=== PATIENT | female | born 1925 | race Hispanic/Latino ===

== ENCOUNTER 2016-10-24 12:07 | Inpatient (IN) | payer MEDICARE, OTHER ==
[2016-10-24 12:13] VITALS: BMI 26.9
--- NOTE | 2016-10-24 12:29 | ED PDOC ---
Syncope/Near Syncope/Dizziness Time Seen by Provider: 10/24/16 12:19 History Per: Other Onset/Duration Of Symptoms: Days (1) Current Symptoms Are (Timing): Better Associated Symptoms Preceding Syncopal Episode: No Predromal Symptoms (Sudden Onset) Seizure Or Post-ictal Symptoms: None Possible Causative Factor(s): Decreased PO Intake Fall Associated With With Symptoms: Yes Severity: Mild Pain Scale Rating Of: 0 Additional Complaint(s): Found by aide on floor this AM. Pt did not respond to doorbell. Fell last night , inkown time andf unknown circimstances. Pt denies dizziness, chest pain, palpitaions, headache or LOC. Denies injury. No neck,back or ext pain. Past Medical History Vital Signs: Last Vital Signs Temp 99.9 F H 10/24/16 12:14 Pulse 100 H 10/24/16 12:14 Resp 19 10/24/16 12:14 BP 130/62 10/24/16 12:14 Pulse Ox 94 L 10/24/16 12:14 - Medical History PMH: Dementia, Diabetes, HTN Denies: HIV, Chronic Kidney Disease - Surgical History Surgical History: Cholecystectomy - Family History Family History: States: Unknown Family Hx - Home Medications Home Medications: Ambulatory Orders Medication Instructions Recorded Aspirin [Ecotrin] 81 mg PO DAILY 10/24/16 Diclofenac Sodium [Voltaren] 1 appl TOP BID PRN 10/24/16 Famotidine [Pepcid] 20 mg PO BID 10/24/16 Glimepiride [amaRYL] 2 mg PO DAILY 10/24/16 Losartan/Hydrochlorothiazide 1 tab PO DAILY 10/24/16 [Hyzaar 100-12.5 Tablet] Memantine [Namenda] 10 mg PO BID 10/24/16 Metoprolol Succinate [Toprol XL] 25 mg PO DAILY 10/24/16 SITagliptin [Januvia] 50 mg PO DAILY 10/24/16 amLODIPine [Norvasc] 10 mg PO HS 10/24/16 - Allergies Allergies/Adverse Reactions: Allergies Allergy/AdvReac Type Severity Reaction Status Date / Time No Known Allergies Allergy Verified 10/24/16 12:19 Review of Systems ROS Statement: Except As Marked, All Systems Reviewed And Found Negative Physical Exam - Reviewed Nursing Documentation Reviewed: Yes Vital Signs Reviewed: Yes - Physical Exam Appears: Positive for: Non-toxic, No Acute Distress Head Exam: Positive for: ATRAUMATIC, NORMAL INSPECTION, NORMOCEPHALIC Skin: Positive for: Normal Color, Warm, DRY Eye Exam: Positive for: EOMI, Normal appearance, PERRL ENT: Positive for: Normal ENT Inspection Neck: Positive for: Normal, Painless ROM Cardiovascular/Chest: Positive for: Regular Rate, Rhythm Respiratory: Positive for: CNT, Normal Breath Sounds Gastrointestinal/Abdominal: Positive for: Normal Exam, Bowel Sounds, Soft Back: Positive for: Normal Inspection Extremity: Positive for: Normal ROM Neurologic/Psych: Positive for: Alert, Oriented - Laboratory Results Result Diagrams: 10/24/16 12:40 10/24/16 12:40 - ECG O2 Sat by Pulse Oximetry: 94 Disposition - Clinical Impression Clinical Impression: Syncope, SIRS (systemic inflammatory response syndrome) - Patient ED Disposition Is Patient to be Admitted: Yes - Disposition Disposition Time: 16:27 Condition: FAIR - Pt Status Changed To: Hospital Disposition Of: Observation - POA Present On Arrival: None
[2016-10-24 13:12] LABS: BASO # 0.1 K/uL (0.0-0.2); BASO % 0.8 % (0.0-2.0); EOS # 0.6 K/uL (0.0-0.7); EOS % 4.7 % (0.0-4.0); HEMOGLOBIN 12.4 g/dL (12.0-16.0); LYMPH # 1.4 K/uL (1.0-4.3); LYMPH % 10.8 % (20.0-40.0); MEAN CELL VOLUME 84.2 fl (81.0-99.0); MEAN CORPUSCULAR HEMOGLOBIN 26.9 pg (27.0-31.0); MEAN PLATELET VOLUME 9.8 fl (7.2-11.7); MONO # 1.1 K/uL (0.0-0.8); MONO % 8.6 % (0.0-10.0); NEUT # 9.6 K/uL (1.8-7.0); NEUT % 75.1 % (50.0-75.0); RBC 4.62 Mil/uL (3.80-5.20); RED CELL DISTRIBUTION WIDTH 14.1 % (11.5-14.5); WHITE BLOOD COUNT 12.8 K/uL (4.8-10.8)
[2016-10-24 13:21] LABS: ALB/GLOB RATIO 1.3 (1.0-2.1); ALBUMIN 4.6 g/dL (3.5-5.0); CALCIUM 9.8 mg/dL (8.4-10.2)
--- NOTE | 2016-10-24 16:04 | RAD ---
PROCEDURE: Radiographs of the pelvis. Bowel HISTORY: trauma COMPARISON: None. FINDINGS: BONES: Pelvic Bones: Unremarkable. Hips: Moderate degenerative changes are bilaterally symmetrical. JOINTS: Sacroiliac Joints: Unremarkable. Pubic Symphysis: Unremarkable. OTHER FINDINGS: None. IMPRESSION: No acute findings related to/accounting for the clinical presentation.
--- NOTE | 2016-10-24 16:05 | RAD ---
PROCEDURE: CHEST RADIOGRAPH, 1 VIEW HISTORY: syncope COMPARISON: All 09/14/2015 None available. FINDINGS: LUNGS: Clear. PLEURA: No pneumothorax or pleural fluid seen. CARDIOVASCULAR: No radiographic findings to suggest acute or significant cardiovascular disease. OSSEOUS STRUCTURES: No significant abnormalities. VISUALIZED UPPER ABDOMEN: Normal. OTHER FINDINGS: None. IMPRESSION: No active disease. No acute/significant interval changes.
--- NOTE | 2016-10-24 16:23 | CT ---
PROCEDURE: CT HEAD WITHOUT CONTRAST. HISTORY: r/o bleed COMPARISON: None available. TECHNIQUE: Axial computed tomography images were obtained through the head/brain without intravenous contrast. Radiation dose: Total exam DLP = 853.45 mGy-cm. This CT exam was performed using one or more of the following dose reduction techniques: Automated exposure control, adjustment of the mA and/or kV according to patient size, and/or use of iterative reconstruction technique. FINDINGS: HEMORRHAGE: No intracranial hemorrhage. BRAIN: There is cystic encephalomalacia in the right lateral frontal and anterior parietal lobes. There is no mass, mass effect or abnormal extra-axial fluid collection. There are mild chronic microangiopathic changes. There are coarse atherosclerotic calcifications in the cavernous carotid arteries. VENTRICLES: There is mild ex vacuo dilatation of the right lateral ventricle. There is mild age-related global parenchymal volume loss and proportionate enlargement of the ventricles and cortical sulci. CALVARIUM: There is hyperostosis frontalis interna. PARANASAL SINUSES: Predominantly clear. MASTOID AIR CELLS: Predominantly clear. OTHER FINDINGS: None. IMPRESSION: 1. No acute intracranial abnormality. 2. 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 3. Mild chronic microangiopathic changes and mild age-related global parenchymal volume loss.
[2016-10-24 16:40] LABS: VENOUS BLOOD GAS BASE EXCESS -1.9 mmol/L (0.0-2.0); VENOUS BLOOD GAS PCO2 35 mmHg (40-60); VENOUS BLOOD GAS PO2 34 mm/Hg (30-55); VENOUS BLOOD PH 7.41 (7.32-7.43)
[2016-10-24] MEDS ORDERED: Sodium Chloride 0.9% 1,000 ML IV STA (16:52)
[2016-10-24 17:07] LABS: SQUAMOUS EPITHIAL < 1 /hpf (0-5); URINE BILIRUBIN NEGATIVE (NEGATIVE); URINE BLOOD NEGATIVE (NEGATIVE); URINE CLARITY CLEAR (Clear); URINE COLOR YELLOW (YELLOW); URINE GLUCOSE (UA) NEG (Normal); URINE LEUKOCYTE ESTERASE SMALL Leu/uL (Negative); URINE NITRATE NEGATIVE (NEGATIVE); URINE PROTEIN NEGATIVE (NEGATIVE); URINE UROBILINOGEN 0.2-1.0 mg/dL (0.2-1.0)
[2016-10-24] MEDS ORDERED: Piperacillin/Tazobact 3.375 GM in Sodium Chloride 0.9% 100 ML IVPB STA (17:30)
[2016-10-24 18:51] LABS: VENOUS BLOOD GAS BASE EXCESS -1.7 mmol/L (0.0-2.0); VENOUS BLOOD GAS PCO2 38 mmHg (40-60); VENOUS BLOOD GAS PO2 31 mm/Hg (30-55); VENOUS BLOOD PH 7.39 (7.32-7.43)
[2016-10-24] MEDS: Dextrose 5%/0.45% NS 1,000 ML IV SCH (20:56)
[2016-10-24] MEDS ORDERED: Patient's Own Med (Diclofenac Sodium [Voltaren] 1 APPL) TOP PRN (22:58)
[2016-10-25] MEDS: GlipiZIDE 5 mg SR Tab PO SCH (08:59)
[2016-10-25] MEDS: Dextrose 5%/0.45% NS 1,000 ML IV SCH (08:59)
[2016-10-25] MEDS: Metoprolol Succinate 25 mg XL Tab PO SCH (08:59)
[2016-10-25] MEDS ORDERED: Pneumococcal 23-Valent Vaccine IM ONE (09:00)
[2016-10-25] MEDS ORDERED: Patient's Own Med (Losartan/Hydrochlorothiazide [Hyzaar 100-12.5 Tablet] 1 TAB) PO SCH (09:00)
[2016-10-25] MEDS: Enoxaparin 30 mg Syringe SC SCH (09:01)
--- NOTE | 2016-10-25 10:15 | CP.PCM.HP ---
Past Patient History - Infectious Disease Hx of Infectious Diseases: None - Past Medical History & Family History Past Medical History?: Yes - Past Social History Smoking Status: Never Smoked - CARDIAC Hx Hypercholesterolemia: Yes Hx Hypertension: Yes - PULMONARY Hx Respiratory Disorders: No - NEUROLOGICAL HX Cerebrovascular Accident: Yes Hx Dementia: Yes - HEENT Hx Cataracts: Yes - RENAL Hx Chronic Kidney Disease: No - ENDOCRINE/METABOLIC Hx Endocrine Disorders: Yes Hx Diabetes Mellitus Type 2: Yes - HEMATOLOGICAL/ONCOLOGICAL Hx Human Immunodeficiency Virus (HIV): No - INTEGUMENTARY Hx Dermatological Problems: No - MUSCULOSKELETAL/RHEUMATOLOGICAL Hx Falls: Yes - GASTROINTESTINAL Hx Gastrointestinal Disorders: No - GENITOURINARY/GYNECOLOGICAL Hx Genitourinary Disorders: No - PSYCHIATRIC Hx Substance Use: No - SURGICAL HISTORY Hx Cholecystectomy: Yes Hx Hysterectomy: Yes - ANESTHESIA Hx Anesthesia: Yes Hx Anesthesia Reactions: No Meds Allergies/Adverse Reactions: Allergies Allergy/AdvReac Type Severity Reaction Status Date / Time No Known Allergies Allergy Verified 10/24/16 12:19 Results - Vital Signs Recent Vital Signs: Last Vital Signs Temp 37.9 C H 10/25/16 08:00 Pulse 99 H 10/25/16 09:01 Resp 18 10/25/16 08:00 BP 134/72 10/25/16 09:01 Pulse Ox 90 L 10/25/16 08:00 - Labs Result Diagrams: 10/24/16 12:40 10/24/16 12:40 Labs: Laboratory Results - last 24 hr 10/24/16 10/24/16 10/24/16 16:30 16:54 18:45 pO2 34 31 VBG pH 7.41 7.39 VBG pCO2 35 L 38 L VBG HCO3 22.6 22.6 VBG Total CO2 23.3 24.2 VBG O2 Sat (Calc) 75.2 H 65.0 VBG Base Excess -1.9 L -1.7 L VBG Potassium 3.9 4.2 Sodium 141.0 141.0 Chloride 112.0 H 111.0 H Glucose 178 H 162 H Lactate 2.9 H 1.9 FiO2 21.0 21.0 POC Glucose (mg/dL) Venous Blood Potassium 3.9 4.2 Urine Color Yellow Urine Clarity Clear Urine pH 5.0 Ur Specific [place] 1.014 Urine Protein Negative Urine Glucose (UA) Neg Urine Ketones Negative Urine Blood Negative Urine Nitrate Negative Urine Bilirubin Negative Urine Urobilinogen 0.2-1.0 Ur Leukocyte Esterase Small Urine RBC (Auto) 2 Urine Microscopic WBC 12 H Ur Squamous Epith Cells < 1 10/24/16 10/24/16 10/25/16 18:51 21:22 05:38 pO2 VBG pH VBG pCO2 VBG HCO3 VBG Total CO2 VBG O2 Sat (Calc) VBG Base Excess VBG Potassium Sodium Chloride Glucose Lactate FiO2 POC Glucose (mg/dL) 171 H 178 H 214 H Venous Blood Potassium Urine Color Urine Clarity Urine pH Ur Specific [place] Urine Protein Urine Glucose (UA) Urine Ketones Urine Blood Urine Nitrate Urine Bilirubin Urine Urobilinogen Ur Leukocyte Esterase Urine RBC (Auto) Urine Microscopic WBC Ur Squamous Epith Cells
[2016-10-25] MEDS: Lidocaine 5% Patch TD SCH (12:29)
--- NOTE | 2016-10-25 16:37 | CP.PCM.CON ---
History of Present Illness - History of Present Illness History of Present Illness: NEURO CONSULT NOTE: 10/25/16 CHIEF COMPLAINT: FALL HPI: THIS IS A 89 YEAR OLD WOMAN WITH H/O DEMENTIA, TYPE ii DM, HLD, S/P FALL AND GENERALIZED WEAKNESS FOUND TO HAVE INCREASED BLOOD SUGAR AND INCREASED BUN AND CREATININE WITH SMALL UTI. CT HEAD SHOWED NO ACUTE INTRACRANIAL ABNORMALITY. 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 FOLLOWS COMMANDS. ROS: 14 POINT REVIEW OF SYMPTOMS IS NEGATIVE PER HPI. ALLERGIES: NONE SOCIAL HISTORY: NO ILLICIT DRUG USE, SMOKING, OR ETOH USE. FAMILY: NON CONTRIBUTORY. MEDICATIONS: REVIEWED BY NURSE'S RECONCILIATION SHEET. PAST MEDICAL HISTORY: DEMENTIA, TYPE ii DM, HLD PHYSICAL EXAM: VITAL SIGNS: REVIEWED BY THE CHART GENERAL EXAM: PATIENT SEEN IN BED, IN NO ACUTE DISTRESS HEENT: PERRLA, EOMI, NECK SUPPLE, NO JVD, NO ADENOPATHY CVS: S1, S2, RRR, NO MURMURS NOTED LUNGS: CLEAR TO AUSCULTATION, NO ADVENTITIOUS SOUNDS ABDOMEN: SOFT AND NONTENDER EXTREMITIES: NO CLUBBING OR CYANOSIS. PP 2+ B/L NEURO: PT IS ALERT AND ORIENTED TO PERSON, PLACE, AND YEAR. , RECALL TO 5 MINUTES 0/3, POOR ATTENTION SPAN SPEECH IS FLUENT WITHOUT ERRORS, CN II-XII INTACT, MOTOR EXAM: NORMAL TONE, NORMAL BULK OF MUSCLE, MOVES ALL EXTREMITIES EQUALLY, NO PRONATOR DRIFT SEEN. SENSORY EXAM: LIGHT TOUCH, PIN PRICK UP TO CALVES B/L, PROPRIOCEPTION , DECREASED VIBRATION AT TOES AND KNEES. DEEP TENDON REFLEXES: 2+ THROUGHOUT AND ABSENT AT KNEES AND ANKLES. COORDINATION: FINGER TO NOSE IS INTACT. HEEL TO [place]CK[place] IS INTACT GAIT: DEFERRED LABS: REVIEWED BY THE CHART. ASSESSMENT AND PLAN: THIS IS A 89 YEAR OLD WOMAN WITH H/O DEMENTIA, TYPE ii DM, HLD, S/P FALL AND GENERALIZED WEAKNESS FOUND TO HAVE INCREASED BLOOD SUGAR AND INCREASED BUN AND CREATININE WITH SMALL UTI. CT HEAD SHOWED NO ACUTE INTRACRANIAL ABNORMALITY. 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 FOLLOWS COMMANDS. IMPRESSION: FALL SECONDARY TO UNSTABLE GAIT FROM UNDERLYING DIABETIC PERIPHERAL NEUROPATHY SUPERIMPOSED UNDERLYING DECONSITIONED STATE AND DEHYDRATION., 1. ASA 81 MG FOR STROKE PREVENTION 2. PHYSICAL THERAPY AND WILL NEED SUBACUTE REHAB 3. DIABETIC DIET AND KEEP BLOOD SUGAR BETWEEN 140 AND 180. 4. CONTINUE WITH PRESENT MANAGEMENT THANK YOU. Edgar DOMINGUEZ MD Past Patient History - Infectious Disease Hx of Infectious Diseases: None - Past Medical History & Family History Past Medical History?: Yes - Past Social History Smoking Status: Never Smoked - CARDIAC Hx Hypercholesterolemia: Yes Hx Hypertension: Yes - PULMONARY Hx Respiratory Disorders: No - NEUROLOGICAL HX Cerebrovascular Accident: Yes Hx Dementia: Yes - HEENT Hx Cataracts: Yes - RENAL Hx Chronic Kidney Disease: No - ENDOCRINE/METABOLIC Hx Endocrine Disorders: Yes Hx Diabetes Mellitus Type 2: Yes - HEMATOLOGICAL/ONCOLOGICAL Hx Human Immunodeficiency Virus (HIV): No - INTEGUMENTARY Hx Dermatological Problems: No - MUSCULOSKELETAL/RHEUMATOLOGICAL Hx Falls: Yes - GASTROINTESTINAL Hx Gastrointestinal Disorders: No - GENITOURINARY/GYNECOLOGICAL Hx Genitourinary Disorders: No - PSYCHIATRIC Hx Substance Use: No - SURGICAL HISTORY Hx Cholecystectomy: Yes Hx Hysterectomy: Yes - ANESTHESIA Hx Anesthesia: Yes Hx Anesthesia Reactions: No Meds Allergies/Adverse Reactions: Allergies Allergy/AdvReac Type Severity Reaction Status Date / Time No Known Allergies Allergy Verified 10/24/16 12:19 - Medications Medications: Current Medications Acetaminophen (Tylenol 325mg Tab) 650 mg PO Q6 PRN PRN Reason: Pain, moderate (4-7) Last Admin: 10/25/16 08:57 Dose: 650 mg Amlodipine Besylate (Norvasc) 10 mg PO HS [facility] Last Admin: 10/24/16 23:21 Dose: 10 mg Aspirin (Ecotrin) 81 mg PO DAILY [facility] Last Admin: 10/25/16 09:01 Dose: 81 mg Enoxaparin Sodium (Lovenox) 30 mg SC DAILY [facility] PRN Reason: Protocol Last Admin: 10/25/16 09:01 Dose: 30 mg Famotidine (Pepcid) 20 mg PO BID [facility] Last Admin: 10/25/16 16:16 Dose: 20 mg Glipizide (Glucotrol Xl) 5 mg PO BRK [facility] Last Admin: 10/25/16 08:59 Dose: 5 mg Hydrochlorothiazide (Microzide) 12.5 mg PO DAILY [facility] Last Admin: 10/25/16 09:00 Dose: 12.5 mg Dextrose/Sodium Chloride (Dextrose 5%/0.45% Ns 1000 Ml) 1,000 mls @ 80 mls/hr IV .[id number] [facility] Stop: 10/25/16 19:32 Last Admin: 10/25/16 08:59 Dose: Not Given Lidocaine (Lidoderm) 1 ea TD DAILY [facility] Last Admin: 10/25/16 12:29 Dose: 1 ea Losartan Potassium (Cozaar) 100 mg PO DAILY [facility] Last Admin: 10/25/16 09:01 Dose: 100 mg Memantine (Namenda) 10 mg PO BID [facility] Last Admin: 10/25/16 16:16 Dose: 10 mg Metoprolol Succinate (Toprol Xl) 25 mg PO DAILY [facility] Last Admin: 10/25/16 08:59 Dose: 25 mg Sitagliptin Phosphate (Januvia) 50 mg PO DAILY [facility] Last Admin: 10/25/16 08:58 Dose: 50 mg Results - Vital Signs Recent Vital Signs: Last Vital Signs Temp 98.9 F 10/25/16 16:27 Pulse 94 H 10/25/16 16:27 Resp 18 10/25/16 16:27 BP 125/52 L 10/25/16 16:27 Pulse Ox 94 L 10/25/16 16:27 - Labs Result Diagrams: 10/24/16 12:40 10/24/16 12:40 Labs: Laboratory Results - last 24 hr 10/24/16 10/24/16 10/24/16 16:30 16:54 18:45 pO2 34 31 VBG pH 7.41 7.39 VBG pCO2 35 L 38 L VBG HCO3 22.6 22.6 VBG Total CO2 23.3 24.2 VBG O2 Sat (Calc) 75.2 H 65.0 VBG Base Excess -1.9 L -1.7 L VBG Potassium 3.9 4.2 Sodium 141.0 141.0 Chloride 112.0 H 111.0 H Glucose 178 H 162 H Lactate 2.9 H 1.9 FiO2 21.0 21.0 POC Glucose (mg/dL) Venous Blood Potassium 3.9 4.2 Urine Color Yellow Urine Clarity Clear Urine pH 5.0 Ur Specific [place] 1.014 Urine Protein Negative Urine Glucose (UA) Neg Urine Ketones Negative Urine Blood Negative Urine Nitrate Negative Urine Bilirubin Negative Urine Urobilinogen 0.2-1.0 Ur Leukocyte Esterase Small Urine RBC (Auto) 2 Urine Microscopic WBC 12 H Ur Squamous Epith Cells < 1 10/24/16 10/24/16 10/25/16 18:51 21:22 05:38 pO2 VBG pH VBG pCO2 VBG HCO3 VBG Total CO2 VBG O2 Sat (Calc) VBG Base Excess VBG Potassium Sodium Chloride Glucose Lactate FiO2 POC Glucose (mg/dL) 171 H 178 H 214 H Venous Blood Potassium Urine Color Urine Clarity Urine pH Ur Specific [place] Urine Protein Urine Glucose (UA) Urine Ketones Urine Blood Urine Nitrate Urine Bilirubin Urine Urobilinogen Ur Leukocyte Esterase Urine RBC (Auto) Urine Microscopic WBC Ur Squamous Epith Cells 10/25/16 10/25/16 11:08 16:09 pO2 VBG pH VBG pCO2 VBG HCO3 VBG Total CO2 VBG O2 Sat (Calc) VBG Base Excess VBG Potassium Sodium Chloride Glucose Lactate FiO2 POC Glucose (mg/dL) 147 H 78 Venous Blood Potassium Urine Color Urine Clarity Urine pH Ur Specific [place] Urine Protein Urine Glucose (UA) Urine Ketones Urine Blood Urine Nitrate Urine Bilirubin Urine Urobilinogen Ur Leukocyte Esterase Urine RBC (Auto) Urine Microscopic WBC Ur Squamous Epith Cells
--- NOTE | 2016-10-25 17:22 | CARD ---
APPROVED REPORT EKG Measurement Heart [id number] <Conclusion> Sinus rhythm with 1st degree AV block Otherwise normal ECG
--- NOTE | 2016-10-25 18:07 | CP.PCM.CON ---
History of Present Illness - History of Present Illness History of Present Illness: patient seen/examined. no cardiac arrhythmia thus far on monitor will follow up EKG/echo Past Patient History - Infectious Disease Hx of Infectious Diseases: None - Past Medical History & Family History Past Medical History?: Yes - Past Social History Smoking Status: Never Smoked - CARDIAC Hx Hypercholesterolemia: Yes Hx Hypertension: Yes - PULMONARY Hx Respiratory Disorders: No - NEUROLOGICAL HX Cerebrovascular Accident: Yes Hx Dementia: Yes - HEENT Hx Cataracts: Yes - RENAL Hx Chronic Kidney Disease: No - ENDOCRINE/METABOLIC Hx Endocrine Disorders: Yes Hx Diabetes Mellitus Type 2: Yes - HEMATOLOGICAL/ONCOLOGICAL Hx Human Immunodeficiency Virus (HIV): No - INTEGUMENTARY Hx Dermatological Problems: No - MUSCULOSKELETAL/RHEUMATOLOGICAL Hx Falls: Yes - GASTROINTESTINAL Hx Gastrointestinal Disorders: No - GENITOURINARY/GYNECOLOGICAL Hx Genitourinary Disorders: No - PSYCHIATRIC Hx Substance Use: No - SURGICAL HISTORY Hx Cholecystectomy: Yes Hx Hysterectomy: Yes - ANESTHESIA Hx Anesthesia: Yes Hx Anesthesia Reactions: No Meds Allergies/Adverse Reactions: Allergies Allergy/AdvReac Type Severity Reaction Status Date / Time No Known Allergies Allergy Verified 10/24/16 12:19 - Medications Medications: Current Medications Acetaminophen (Tylenol 325mg Tab) 650 mg PO Q6 PRN PRN Reason: Pain, moderate (4-7) Last Admin: 10/25/16 08:57 Dose: 650 mg Amlodipine Besylate (Norvasc) 10 mg PO HS [facility] Last Admin: 10/24/16 23:21 Dose: 10 mg Aspirin (Ecotrin) 81 mg PO DAILY [facility] Last Admin: 10/25/16 09:01 Dose: 81 mg Enoxaparin Sodium (Lovenox) 30 mg SC DAILY [facility] PRN Reason: Protocol Last Admin: 10/25/16 09:01 Dose: 30 mg Famotidine (Pepcid) 20 mg PO BID [facility] Last Admin: 10/25/16 16:16 Dose: 20 mg Glipizide (Glucotrol Xl) 5 mg PO BRK [facility] Last Admin: 10/25/16 08:59 Dose: 5 mg Hydrochlorothiazide (Microzide) 12.5 mg PO DAILY [facility] Last Admin: 10/25/16 09:00 Dose: 12.5 mg Dextrose/Sodium Chloride (Dextrose 5%/0.45% Ns 1000 Ml) 1,000 mls @ 80 mls/hr IV .[id number] [facility] Stop: 10/25/16 19:32 Last Admin: 10/25/16 08:59 Dose: Not Given Lidocaine (Lidoderm) 1 ea TD DAILY [facility] Last Admin: 10/25/16 12:29 Dose: 1 ea Losartan Potassium (Cozaar) 100 mg PO DAILY [facility] Last Admin: 10/25/16 09:01 Dose: 100 mg Memantine (Namenda) 10 mg PO BID [facility] Last Admin: 10/25/16 16:16 Dose: 10 mg Metoprolol Succinate (Toprol Xl) 25 mg PO DAILY [facility] Last Admin: 10/25/16 08:59 Dose: 25 mg Sitagliptin Phosphate (Januvia) 50 mg PO DAILY [facility] Last Admin: 10/25/16 08:58 Dose: 50 mg Results - Vital Signs Recent Vital Signs: Last Vital Signs Temp 98.9 F 10/25/16 16:27 Pulse 94 H 10/25/16 16:27 Resp 18 10/25/16 16:27 BP 125/52 L 10/25/16 16:27 Pulse Ox 94 L 10/25/16 16:27 - Labs Result Diagrams: 10/24/16 12:40 10/24/16 12:40 Labs: Laboratory Results - last 24 hr 10/24/16 10/24/16 10/24/16 18:45 18:51 21:22 pO2 31 VBG pH 7.39 VBG pCO2 38 L VBG HCO3 22.6 VBG Total CO2 24.2 VBG O2 Sat (Calc) 65.0 VBG Base Excess -1.7 L VBG Potassium 4.2 Sodium 141.0 Chloride 111.0 H Glucose 162 H Lactate 1.9 FiO2 21.0 POC Glucose (mg/dL) 171 H 178 H Venous Blood Potassium 4.2 10/25/16 10/25/16 10/25/16 05:38 11:08 16:09 pO2 VBG pH VBG pCO2 VBG HCO3 VBG Total CO2 VBG O2 Sat (Calc) VBG Base Excess VBG Potassium Sodium Chloride Glucose Lactate FiO2 POC Glucose (mg/dL) 214 H 147 H 78 Venous Blood Potassium
--- NOTE | 2016-10-25 18:07 | CP.PCM.PN ---
Objective - Vital Signs/Intake and Output Vital Signs (last 24 hours): Temp Pulse Resp BP Pulse Ox 98.9 F 94 H 18 125/52 L 94 L 10/25/16 16:27 10/25/16 16:27 10/25/16 16:27 10/25/16 16:27 10/25/16 16:27 - Medications Medications: Current Medications Acetaminophen (Tylenol 325mg Tab) 650 mg PO Q6 PRN PRN Reason: Pain, moderate (4-7) Last Admin: 10/25/16 08:57 Dose: 650 mg Amlodipine Besylate (Norvasc) 10 mg PO HS [facility] Last Admin: 10/24/16 23:21 Dose: 10 mg Aspirin (Ecotrin) 81 mg PO DAILY [facility] Last Admin: 10/25/16 09:01 Dose: 81 mg Enoxaparin Sodium (Lovenox) 30 mg SC DAILY [facility] PRN Reason: Protocol Last Admin: 10/25/16 09:01 Dose: 30 mg Famotidine (Pepcid) 20 mg PO BID [facility] Last Admin: 10/25/16 16:16 Dose: 20 mg Glipizide (Glucotrol Xl) 5 mg PO BRK [facility] Last Admin: 10/25/16 08:59 Dose: 5 mg Hydrochlorothiazide (Microzide) 12.5 mg PO DAILY [facility] Last Admin: 10/25/16 09:00 Dose: 12.5 mg Dextrose/Sodium Chloride (Dextrose 5%/0.45% Ns 1000 Ml) 1,000 mls @ 80 mls/hr IV .[id number] [facility] Stop: 10/25/16 19:32 Last Admin: 10/25/16 08:59 Dose: Not Given Lidocaine (Lidoderm) 1 ea TD DAILY [facility] Last Admin: 10/25/16 12:29 Dose: 1 ea Losartan Potassium (Cozaar) 100 mg PO DAILY [facility] Last Admin: 10/25/16 09:01 Dose: 100 mg Memantine (Namenda) 10 mg PO BID [facility] Last Admin: 10/25/16 16:16 Dose: 10 mg Metoprolol Succinate (Toprol Xl) 25 mg PO DAILY [facility] Last Admin: 10/25/16 08:59 Dose: 25 mg Sitagliptin Phosphate (Januvia) 50 mg PO DAILY [facility] Last Admin: 10/25/16 08:58 Dose: 50 mg
--- NOTE | 2016-10-26 09:14 | CP.PCM.CON ---
History of Present Illness - History of Present Illness History of Present Illness: I was asked to see patient by Dr Pyle. The patient is a 89 year old female with a hsitory of HTRN, diabetes and hypercholesterolemia who presents with eakness. The patient states symptoms began one day prior to her admission. The patietn denies chest pain or palpitaitons. She felt faint as if she were going to pass out. Review of Systems - Constitutional Constitutional: Fatigue, Weakness - EENT Eyes: absent: As Per HPI, Blind Spots, Blurred Vision, Change in Vision, Decreased Night Vision, Diplopia, Discharge, Dry Eye, Exophthalmos, Floaters, Irritation, Itchy Eyes, Loss of Peripheral Vision, Pain, Photophobia, Requires Corrective Lenses, Sees Flashes, Spots in Vision, Tunnel Vision, Other Visual Disturbances, Loss of Vision, Other Ears: absent: As Per HPI, Decreased Hearing, Ear Discharge, Ear Pain, Tinnitus, Abnormal Hearing, Disequilibrium, Dizziness, Other Nose/Mouth/Throat: absent: As Per HPI, Epistaxis, Nasal Congestion, Nasal Discharge, Nasal Obstruction, Nasal Trauma, Nose Pain, Post Nasal Drip, Sinus Pain, Sinus Pressure, Bleeding Gums, Change in Voice, Dental Pain, Dry Mouth, Dysphagia, Halitosis, Hoarsness, Lip Swelling, Mouth Lesions, Mouth Pain, Odynophagia, Sore Throat, Throat Swelling, Tongue Swelling, Facial Pain, Neck Pain, Neck Mass, Other - Cardiovascular Cardiovascular: absent: As Per HPI, Acrocyanosis, Chest Pain, Chest Pain at Rest , Chest Pain with Activity, Claudication, Diaphoresis, Dyspnea, Dyspnea on Exertion, Edema, Irregular Heart Rhythm, Pain Radiating to Arm/Neck/Jaw, Leg Edema, Leg Ulcers, Lightheadedness, Orthopnea, Palpitations, Paroxysmal Nocturnal Dyspnea, Pedal Edema, Radiating Pain, Rapid Heart Rate, Slow Heart Rate, Syncope, Other - Respiratory Respiratory: absent: As Per HPI, Cough, Dyspnea, Hemoptysis, Dyspnea on Exertion , Wheezing, Snoring, Stridor, Pain on Inspiration, Chest Congestion, Excessive Mucous Production, Change in Mucous Color, Pain with Coughing, Other - Gastrointestinal Gastrointestinal: absent: As Per HPI, Abdominal Pain, Belching, Bloating, Change in Bowel Habits, Change in Stool Character, Coffee Ground Emesis, Constipation, Cramping, Diarrhea, Dyspepsia, Dysphagia, Early Satiety, Excessive Flatus, Fecal Incontinence, Heartburn, Hematemesis, Hematochezia, Loose Stools, Melena, Nausea, Odynophagia, Temesmus, Vomiting, Other - Genitourinary Genitourinary: absent: As Per HPI, Change in Urinary Stream, Difficulty Urinating, Dysuria, Flank Pain, Hematuria, Pyuria, Nocturia, Urinary Incontinence, Urinary Frequency, Urinary Hesitance, Urinary Urgency, Voiding Freq/Small Amts, Freq UTI, Hx Renal/Bladder Calculi, Hx /Renal Surgery, Bladder Distension, Other - Musculoskeletal Musculoskeletal: absent: As Per HPI, Abnormal Gait, Arthralgias, Atrophy, Back Pain, Deformity, Joint Swelling, Limited Range of Motion, Loss of Height, Muscle Cramps, Muscle Weakness, Myalgias, Neck Pain, Numbness, Radiating Pain into Limb, Stiffness, Tingling, Other - Neurological Neurological: absent: As Per HPI, Abnormal Gait, Abnormal Hearing, Abnormal Movements, Abnormal Speech, Behavioral Changes, Burning Sensations, Confusion, Convulsions, Disequilibrium, Dizziness, Numbness, Focal Weakness, Frequent Falls , Headaches, Lack of Coordination, Loss of Vision, Memory Loss, Paresthesias, Radicular Pain, Restless Legs, Sensory Deficit, Syncope, Tingling, Tremor, Vertigo, Weakness, Other Visual Disturbances, Other - Psychiatric Psychiatric: absent: As Per HPI, Abnormal Sleep Pattern, Anhedonia, Anxiety, Auditory Hallucinations, Behavioral Changes, Change in Appetite, Change in Libido, Confusion, Depression, Difficulty Concentrating, Hallucinations, Homicidal Ideation, Hopelessness, Irritability, Memory Loss, Mood Swings, Panic Attacks, Paranoia, Suicidal Ideation, Visual Hallucinations, Tactile Hallucinations, Other - Endocrine Endocrine: absent: As Per HPI, Change in Body Appearance, Change in Libido, Cold Intolorance, Deepening of Voice, Excessive Sweating, Fatigue, Flushing, Heat Intolorance, Increase in Ring/Shoe/Hat Size, Palpitations, Polydipsia, Polyphagia, Polyuria, Other - Hematologic/Lymphatic Hematologic: absent: As Per HPI, Easy Bleeding, Easy Bruising, Lymphadenopathy, Other Past Patient History - Infectious Disease Hx of Infectious Diseases: None - Past Medical History & Family History Past Medical History?: Yes - Past Social History Smoking Status: Never Smoked - CARDIAC Hx Hypercholesterolemia: Yes Hx Hypertension: Yes - PULMONARY Hx Respiratory Disorders: No - NEUROLOGICAL HX Cerebrovascular Accident: Yes Hx Dementia: Yes - HEENT Hx Cataracts: Yes - RENAL Hx Chronic Kidney Disease: No - ENDOCRINE/METABOLIC Hx Endocrine Disorders: Yes Hx Diabetes Mellitus Type 2: Yes - HEMATOLOGICAL/ONCOLOGICAL Hx Human Immunodeficiency Virus (HIV): No - INTEGUMENTARY Hx Dermatological Problems: No - MUSCULOSKELETAL/RHEUMATOLOGICAL Hx Falls: Yes - GASTROINTESTINAL Hx Gastrointestinal Disorders: No - GENITOURINARY/GYNECOLOGICAL Hx Genitourinary Disorders: No - PSYCHIATRIC Hx Substance Use: No - SURGICAL HISTORY Hx Cholecystectomy: Yes Hx Hysterectomy: Yes - ANESTHESIA Hx Anesthesia: Yes Hx Anesthesia Reactions: No Meds Allergies/Adverse Reactions: Allergies Allergy/AdvReac Type Severity Reaction Status Date / Time No Known Allergies Allergy Verified 10/24/16 12:19 - Medications Medications: Current Medications Acetaminophen (Tylenol 325mg Tab) 650 mg PO Q6 PRN PRN Reason: Pain, moderate (4-7) Last Admin: 10/25/16 08:57 Dose: 650 mg Amlodipine Besylate (Norvasc) 10 mg PO HS [facility] Last Admin: 10/25/16 21:57 Dose: 10 mg Aspirin (Ecotrin) 81 mg PO DAILY [facility] Last Admin: 10/25/16 09:01 Dose: 81 mg Enoxaparin Sodium (Lovenox) 30 mg SC DAILY [facility] PRN Reason: Protocol Last Admin: 10/25/16 09:01 Dose: 30 mg Famotidine (Pepcid) 20 mg PO BID [facility] Last Admin: 10/25/16 16:16 Dose: 20 mg Glipizide (Glucotrol Xl) 5 mg PO BRK [facility] Last Admin: 10/25/16 08:59 Dose: 5 mg Hydrochlorothiazide (Microzide) 12.5 mg PO DAILY [facility] Last Admin: 10/25/16 09:00 Dose: 12.5 mg Lidocaine (Lidoderm) 1 ea TD DAILY [facility] Last Admin: 10/25/16 12:29 Dose: 1 ea Losartan Potassium (Cozaar) 100 mg PO DAILY [facility] Last Admin: 10/25/16 09:01 Dose: 100 mg Memantine (Namenda) 10 mg PO BID [facility] Last Admin: 10/25/16 16:16 Dose: 10 mg Metoprolol Succinate (Toprol Xl) 25 mg PO DAILY [facility] Last Admin: 10/25/16 08:59 Dose: 25 mg Sitagliptin Phosphate (Januvia) 50 mg PO DAILY [facility] Last Admin: 10/25/16 08:58 Dose: 50 mg Physical Exam - Constitutional Appears: Non-toxic - Head Exam Head Exam: NORMAL INSPECTION - Eye Exam Eye Exam: EOMI - ENT Exam ENT Exam: Mucous Membranes Moist - Neck Exam Neck exam: Positive for: Full Rom - Respiratory Exam Respiratory Exam: NORMAL BREATHING PATTERN - Cardiovascular Exam Cardiovascular Exam: REGULAR RHYTHM - GI/Abdominal Exam GI & Abdominal Exam: Normal Bowel Sounds - Rectal Exam Rectal Exam: Deferred - Extremities Exam Extremities exam: Positive for: pedal edema - Back Exam Back exam: NORMAL INSPECTION - Neurological Exam Neurological exam: Alert, Oriented x3 - Psychiatric Exam Psychiatric exam: Normal Affect - Skin Skin Exam: Normal Color Results - Vital Signs Recent Vital Signs: Last Vital Signs Temp 99 F 10/26/16 08:11 Pulse 70 10/26/16 08:11 Resp 18 10/26/16 08:11 BP 126/63 10/26/16 08:11 Pulse Ox 95 10/26/16 08:11 - Labs Result Diagrams: 10/24/16 12:40 10/24/16 12:40 Labs: Laboratory Results - last 24 hr 10/25/16 10/25/16 10/25/16 11:08 16:09 21:14 POC Glucose (mg/dL) 147 H 78 91 10/26/16 05:23 POC Glucose (mg/dL) 79 - EKG Data EKG Interpreted by: Myself Assessment & Plan (1) Syncope Assessment and Plan: will monitor on telemetry. echocardiogram from less than one year reveals normal left ventricular function. Status: Acute (2) DMII (diabetes mellitus, type 2) Assessment and Plan: recommend glucose control Status: Chronic Priority: High (3) HTN (hypertension) Assessment and Plan: will monitor blood pressure Status: Chronic Priority: Medium
[2016-10-26] MEDS: Lidocaine 5% Patch TD SCH (09:59)
[2016-10-26] MEDS: GlipiZIDE 5 mg SR Tab PO SCH (09:59)
[2016-10-26] MEDS: Enoxaparin 30 mg Syringe SC SCH (10:00)
[2016-10-26] MEDS: Metoprolol Succinate 25 mg XL Tab PO SCH (10:01)
[2016-10-27] MEDS: Lidocaine 5% Patch TD SCH (09:03)
[2016-10-27] MEDS: Enoxaparin 30 mg Syringe SC SCH (09:03)
[2016-10-27] MEDS: GlipiZIDE 5 mg SR Tab PO SCH (09:03)
[2016-10-27] MEDS: Metoprolol Succinate 25 mg XL Tab PO SCH (09:04)
--- NOTE | 2016-10-27 15:01 | US ---
PROCEDURE: Duplex ultrasound of the carotid and vertebral arteries. HISTORY: syncope COMPARISON: None available. TECHNIQUE: Grayscale and duplex Doppler evaluation of the cervical carotid and vertebral arteries were performed. The common carotid, carotid bifurcations and cervical ICA and proximal ECA were evaluated. The vertebral arteries were evaluated for gross patency and direction. FINDINGS: RIGHT CAROTID ARTERIES: Mild intimal thickening within the right common carotid artery. There appears to be some mild partially calcified plaque changes at the carotid bifurcation -proximal internal carotid artery however no evidence of significant stepped up velocities. There is right internal carotid artery is somewhat tortuous Maximal right ICA velocity = 82.5 cm/S Maximal right CCA velocity = 102.2 cm/S ICA/CCA ratio = 1.0 There is slight tortuosity of the right ICA. LEFT CAROTID ARTERIES: Mild intimal thickening within the right common carotid artery. There appears to be some mild partially calcified plaque changes at the carotid bifurcation -proximal internal carotid artery however no evidence of significant stepped up velocities. There is right internal carotid artery is somewhat tortuous the liver Maximal left ICA velocity = 93.1 Maximal left CCA velocity = 107.6 ICA/CCA ratio = 1.3 Slight tortuosity the left internal carotid artery VERTEBRAL ARTERIES: Right Vertebral Artery: Patent. Antegrade flow. Left Vertebral Artery: Patent. Antegrade flow. OTHER FINDINGS: None. IMPRESSION: Mild intimal thickening both common carotid arteries and mild calcified plaque both carotid bifurcations/ internal carotid arteries. No evidence of hemodynamically significant stenosis.
[2016-10-28] MEDS: Lidocaine 5% Patch TD SCH (08:24)
[2016-10-28] MEDS: Enoxaparin 30 mg Syringe SC SCH (08:25)
[2016-10-28] MEDS: Metoprolol Succinate 25 mg XL Tab PO SCH (08:27)
[2016-10-28] MEDS: GlipiZIDE 5 mg SR Tab PO SCH (08:27)
--- NOTE | 2016-10-28 13:21 | CP.PCM.HP ---
History of Present Illness - History of Present Illness History of Present Illness: This is an 89 y/o female admitted for syncope. She was found by her homemaker on the floor unconsciuous and was rushed to ER. Patient denies having any trauma or dizziness. She has a hx of HTN DM 2.] She has no chest pain or SOB. Present on Admission - Present on Admission Any Indicators Present on Admission: No History of DVT/PE: No History of Uncontrolled Diabetes: No Urinary Catheter: No Decubitus Ulcer Present: No Review of Systems - Neurological Neurological: Abnormal Gait Past Patient History - Infectious Disease Hx of Infectious Diseases: None - Past Medical History & Family History Past Medical History?: Yes - Past Social History Smoking Status: Never Smoked - CARDIAC Hx Hypercholesterolemia: Yes Hx Hypertension: Yes - PULMONARY Hx Respiratory Disorders: No - NEUROLOGICAL HX Cerebrovascular Accident: Yes Hx Dementia: Yes - HEENT Hx Cataracts: Yes - RENAL Hx Chronic Kidney Disease: No - ENDOCRINE/METABOLIC Hx Endocrine Disorders: Yes Hx Diabetes Mellitus Type 2: Yes - HEMATOLOGICAL/ONCOLOGICAL Hx Human Immunodeficiency Virus (HIV): No - INTEGUMENTARY Hx Dermatological Problems: No - MUSCULOSKELETAL/RHEUMATOLOGICAL Hx Falls: Yes - GASTROINTESTINAL Hx Gastrointestinal Disorders: No - GENITOURINARY/GYNECOLOGICAL Hx Genitourinary Disorders: No - PSYCHIATRIC Hx Substance Use: No - SURGICAL HISTORY Hx Cholecystectomy: Yes Hx Hysterectomy: Yes - ANESTHESIA Hx Anesthesia: Yes Hx Anesthesia Reactions: No Meds Allergies/Adverse Reactions: Allergies Allergy/AdvReac Type Severity Reaction Status Date / Time No Known Allergies Allergy Verified 10/24/16 12:19 Physical Exam - Head Exam Head Exam: NORMAL INSPECTION - Eye Exam Eye Exam: Normal appearance - Respiratory Exam Respiratory Exam: Clear to Auscultation Bilateral - Cardiovascular Exam Cardiovascular Exam: REGULAR RHYTHM - GI/Abdominal Exam GI & Abdominal Exam: Normal Bowel Sounds - Neurological Exam Neurological exam: CN II-XII Intact Results - Vital Signs Recent Vital Signs: Last Vital Signs Temp 98.3 F 10/28/16 08:00 Pulse 75 10/28/16 08:27 Resp 18 10/28/16 08:00 BP 102/68 10/28/16 08:27 Pulse Ox 97 10/28/16 08:00 - Labs Result Diagrams: 10/24/16 12:40 10/24/16 12:40 Labs: Laboratory Results - last 24 hr 10/27/16 10/27/16 10/28/16 15:41 21:29 05:29 POC Glucose (mg/dL) 137 H 90 71 10/28/16 11:17 POC Glucose (mg/dL) 219 H Assessment & Plan (1) Syncope Status: Acute (2) Dehydration Status: Acute (3) Gait abnormality Status: Acute (4) CKD (chronic kidney disease), stage III Status: Chronic (5) DMII (diabetes mellitus, type 2) Status: Chronic Priority: High (6) HTN (hypertension) Status: Chronic Priority: Medium - Assessment and Plan (Free Text) Plan: cont meds cont PT neuro eval hydrate check labs
--- NOTE | 2016-10-28 13:23 | CP.PCM.PN ---
Subjective - Date & Time of Evaluation Date of Evaluation: 10/26/16 Time of Evaluation: 09:30 - Subjective Subjective: Painet feel a lot stronger. Has no dizziness. Has no chest pain Still with difficulty with gait and balance. She lives alone hence very difficult to get assistance. Objective - Vital Signs/Intake and Output Vital Signs (last 24 hours): Temp Pulse Resp BP Pulse Ox 98.3 F 75 18 102/68 97 10/28/16 08:00 10/28/16 08:27 10/28/16 08:00 10/28/16 08:27 10/28/16 08:00 - Medications Medications: Current Medications Acetaminophen (Tylenol 325mg Tab) 650 mg PO Q6 PRN PRN Reason: Pain, moderate (4-7) Last Admin: 10/26/16 23:28 Dose: 650 mg Amlodipine Besylate (Norvasc) 10 mg PO HS [facility] Last Admin: 10/27/16 21:19 Dose: 10 mg Aspirin (Ecotrin) 81 mg PO DAILY [facility] Last Admin: 10/28/16 08:25 Dose: 81 mg Famotidine (Pepcid) 20 mg PO BID [facility] Last Admin: 10/28/16 08:27 Dose: 20 mg Glipizide (Glucotrol Xl) 5 mg PO BRK [facility] Last Admin: 10/28/16 08:27 Dose: 5 mg Hydrochlorothiazide (Microzide) 12.5 mg PO DAILY [facility] Last Admin: 10/28/16 08:27 Dose: 12.5 mg Lidocaine (Lidoderm) 1 ea TD DAILY [facility] Last Admin: 10/28/16 08:24 Dose: 1 ea Losartan Potassium (Cozaar) 100 mg PO DAILY [facility] Last Admin: 10/28/16 08:26 Dose: 100 mg Memantine (Namenda) 10 mg PO BID [facility] Last Admin: 10/28/16 08:25 Dose: 10 mg Metoprolol Succinate (Toprol Xl) 25 mg PO DAILY [facility] Last Admin: 10/28/16 08:27 Dose: 25 mg Sitagliptin Phosphate (Januvia) 50 mg PO DAILY [facility] Last Admin: 10/28/16 08:27 Dose: 50 mg - Head Exam Head Exam: NORMAL INSPECTION - Eye Exam Eye Exam: Normal appearance - Cardiovascular Exam Cardiovascular Exam: REGULAR RHYTHM - GI/Abdominal Exam GI & Abdominal Exam: Normal Bowel Sounds - Neurological Exam Neurological Exam: Awake, Oriented x3 - Psychiatric Exam Psychiatric exam: Normal Mood Assessment and Plan (1) Dehydration Status: Acute (2) Syncope Status: Acute - Assessment and Plan (Free Text) Plan: contmeds Phys therapy cont hydration follow up UTI exam.
--- NOTE | 2016-10-28 13:25 | CP.PCM.PN ---
Subjective - Date & Time of Evaluation Date of Evaluation: 10/27/16 Time of Evaluation: 10:35 - Subjective Subjective: Patient is stable Has not done any PT yet. Has no dizziness. Objective - Vital Signs/Intake and Output Vital Signs (last 24 hours): Temp Pulse Resp BP Pulse Ox 98.5 F 80 18 125/72 96 10/28/16 13:00 10/28/16 13:00 10/28/16 13:00 10/28/16 13:00 10/28/16 13:00 - Medications Medications: Current Medications Acetaminophen (Tylenol 325mg Tab) 650 mg PO Q6 PRN PRN Reason: Pain, moderate (4-7) Last Admin: 10/26/16 23:28 Dose: 650 mg Amlodipine Besylate (Norvasc) 10 mg PO HS [facility] Last Admin: 10/27/16 21:19 Dose: 10 mg Aspirin (Ecotrin) 81 mg PO DAILY [facility] Last Admin: 10/28/16 08:25 Dose: 81 mg Famotidine (Pepcid) 20 mg PO BID [facility] Last Admin: 10/28/16 08:27 Dose: 20 mg Glipizide (Glucotrol Xl) 5 mg PO BRK [facility] Last Admin: 10/28/16 08:27 Dose: 5 mg Hydrochlorothiazide (Microzide) 12.5 mg PO DAILY [facility] Last Admin: 10/28/16 08:27 Dose: 12.5 mg Lidocaine (Lidoderm) 1 ea TD DAILY [facility] Last Admin: 10/28/16 08:24 Dose: 1 ea Losartan Potassium (Cozaar) 100 mg PO DAILY [facility] Last Admin: 10/28/16 08:26 Dose: 100 mg Memantine (Namenda) 10 mg PO BID [facility] Last Admin: 10/28/16 08:25 Dose: 10 mg Metoprolol Succinate (Toprol Xl) 25 mg PO DAILY [facility] Last Admin: 10/28/16 08:27 Dose: 25 mg Sitagliptin Phosphate (Januvia) 50 mg PO DAILY [facility] Last Admin: 10/28/16 08:27 Dose: 50 mg - Head Exam Head Exam: NORMAL INSPECTION - Eye Exam Eye Exam: Normal appearance - ENT Exam ENT Exam: Mucous Membranes Moist - Respiratory Exam Respiratory Exam: NORMAL BREATHING PATTERN - Cardiovascular Exam Cardiovascular Exam: REGULAR RHYTHM - GI/Abdominal Exam GI & Abdominal Exam: Normal Bowel Sounds - Neurological Exam Neurological Exam: Awake, CN II-XII Intact Assessment and Plan (1) Dehydration Status: Acute (2) Syncope Status: Acute (3) DMII (diabetes mellitus, type 2) Status: Chronic (4) Dementia Status: Chronic (5) HTN (hypertension) Status: Chronic - Assessment and Plan (Free Text) Plan: cont meds cont tx PT subacute rehab
--- NOTE | 2016-10-28 13:26 | CP.PCM.PN ---
Subjective - Date & Time of Evaluation Date of Evaluation: 10/28/16 Time of Evaluation: 10:00 - Subjective Subjective: Patient stays mnostly in bed. Has no episode of dizziness. awaiting for PT. Objective - Vital Signs/Intake and Output Vital Signs (last 24 hours): Temp Pulse Resp BP Pulse Ox 98.5 F 80 18 125/72 96 10/28/16 13:00 10/28/16 13:00 10/28/16 13:00 10/28/16 13:00 10/28/16 13:00 - Medications Medications: Current Medications Acetaminophen (Tylenol 325mg Tab) 650 mg PO Q6 PRN PRN Reason: Pain, moderate (4-7) Last Admin: 10/26/16 23:28 Dose: 650 mg Amlodipine Besylate (Norvasc) 10 mg PO HS [facility] Last Admin: 10/27/16 21:19 Dose: 10 mg Aspirin (Ecotrin) 81 mg PO DAILY [facility] Last Admin: 10/28/16 08:25 Dose: 81 mg Famotidine (Pepcid) 20 mg PO BID [facility] Last Admin: 10/28/16 08:27 Dose: 20 mg Glipizide (Glucotrol Xl) 5 mg PO BRK [facility] Last Admin: 10/28/16 08:27 Dose: 5 mg Hydrochlorothiazide (Microzide) 12.5 mg PO DAILY [facility] Last Admin: 10/28/16 08:27 Dose: 12.5 mg Lidocaine (Lidoderm) 1 ea TD DAILY [facility] Last Admin: 10/28/16 08:24 Dose: 1 ea Losartan Potassium (Cozaar) 100 mg PO DAILY [facility] Last Admin: 10/28/16 08:26 Dose: 100 mg Memantine (Namenda) 10 mg PO BID [facility] Last Admin: 10/28/16 08:25 Dose: 10 mg Metoprolol Succinate (Toprol Xl) 25 mg PO DAILY [facility] Last Admin: 10/28/16 08:27 Dose: 25 mg Sitagliptin Phosphate (Januvia) 50 mg PO DAILY [facility] Last Admin: 10/28/16 08:27 Dose: 50 mg - Head Exam Head Exam: NORMAL INSPECTION - Eye Exam Eye Exam: Normal appearance - ENT Exam ENT Exam: Mucous Membranes Moist - Cardiovascular Exam Cardiovascular Exam: REGULAR RHYTHM - GI/Abdominal Exam GI & Abdominal Exam: Normal Bowel Sounds - Neurological Exam Neurological Exam: Awake, CN II-XII Intact Assessment and Plan (1) Dehydration Status: Acute (2) Syncope Status: Acute (3) DMII (diabetes mellitus, type 2) Status: Chronic (4) Dementia Status: Chronic (5) HTN (hypertension) Status: Chronic - Assessment and Plan (Free Text) Plan: cont meds cont PT subacute rehab
[2016-10-29] MEDS: Lidocaine 5% Patch TD SCH (09:03)
[2016-10-29] MEDS: GlipiZIDE 5 mg SR Tab PO SCH (09:05)
[2016-10-29] MEDS: Metoprolol Succinate 25 mg XL Tab PO SCH (09:06)
[2016-10-29] MEDS: Enoxaparin 30 mg Syringe SC SCH (13:47)
[2016-10-30] MEDS: Enoxaparin 30 mg Syringe SC SCH (09:29)
[2016-10-30] MEDS: GlipiZIDE 5 mg SR Tab PO SCH (09:31)
[2016-10-30] MEDS: Lidocaine 5% Patch TD SCH (09:32)
[2016-10-30] MEDS: Metoprolol Succinate 25 mg XL Tab PO SCH (09:33)
--- NOTE | 2016-10-31 09:24 | CP.PCM.PN ---
Subjective - Date & Time of Evaluation Date of Evaluation: 10/29/16 Time of Evaluation: 09:30 - Subjective Subjective: Patient is table Ambulating with assistance Has no chest pain or dizziness. has good appetite Objective - Vital Signs/Intake and Output Vital Signs (last 24 hours): Temp Pulse Resp BP Pulse Ox 98.3 F 59 L 20 111/55 L 90 L 10/31/16 08:00 10/31/16 08:00 10/31/16 08:00 10/31/16 08:00 10/31/16 08:00 - Medications Medications: Current Medications Acetaminophen (Tylenol 325mg Tab) 650 mg PO Q6 PRN PRN Reason: Pain, moderate (4-7) Last Admin: 10/26/16 23:28 Dose: 650 mg Amlodipine Besylate (Norvasc) 10 mg PO HS [facility] Last Admin: 10/30/16 21:37 Dose: 10 mg Aspirin (Ecotrin) 81 mg PO DAILY [facility] Last Admin: 10/30/16 09:31 Dose: 81 mg Enoxaparin Sodium (Lovenox) 30 mg SC DAILY [facility] PRN Reason: Protocol Last Admin: 10/30/16 09:29 Dose: 30 mg Famotidine (Pepcid) 20 mg PO BID [facility] Last Admin: 10/30/16 17:45 Dose: 20 mg Glipizide (Glucotrol Xl) 5 mg PO BRK [facility] Last Admin: 10/30/16 09:31 Dose: 5 mg Hydrochlorothiazide (Microzide) 12.5 mg PO DAILY [facility] Last Admin: 10/30/16 09:33 Dose: 12.5 mg Lidocaine (Lidoderm) 1 ea TD DAILY [facility] Last Admin: 10/30/16 09:32 Dose: 1 ea Losartan Potassium (Cozaar) 100 mg PO DAILY [facility] Last Admin: 10/30/16 09:31 Dose: 100 mg Memantine (Namenda) 10 mg PO BID [facility] Last Admin: 10/30/16 17:44 Dose: 10 mg Metoprolol Succinate (Toprol Xl) 25 mg PO DAILY [facility] Last Admin: 10/30/16 09:33 Dose: 25 mg Sitagliptin Phosphate (Januvia) 50 mg PO DAILY [facility] Last Admin: 10/30/16 09:31 Dose: 50 mg - Head Exam Head Exam: NORMAL INSPECTION - Eye Exam Eye Exam: Normal appearance - ENT Exam ENT Exam: Mucous Membranes Moist - Respiratory Exam Respiratory Exam: NORMAL BREATHING PATTERN - Cardiovascular Exam Cardiovascular Exam: REGULAR RHYTHM - GI/Abdominal Exam GI & Abdominal Exam: Normal Bowel Sounds Assessment and Plan (1) Dehydration Status: Acute (2) Syncope Status: Acute (3) Gait abnormality Status: Acute - Assessment and Plan (Free Text) Plan: cont meds cont Pt cont meds subacute rehab eval
[2016-10-31] MEDS: GlipiZIDE 5 mg SR Tab PO SCH (09:28)
[2016-10-31] MEDS: Enoxaparin 30 mg Syringe SC SCH (09:29)
[2016-10-31] MEDS: Lidocaine 5% Patch TD SCH (09:30)
--- NOTE | 2016-10-31 09:30 | CP.PCM.PN ---
Subjective - Date & Time of Evaluation Date of Evaluation: 10/30/16 Time of Evaluation: 10:00 - Subjective Subjective: patient remains stable awaiting for subacute rehab eval and placement as no chest pain or SOB Has good appetite Objective - Vital Signs/Intake and Output Vital Signs (last 24 hours): Temp Pulse Resp BP Pulse Ox 98.3 F 65 20 111/55 L 90 L 10/31/16 08:00 10/31/16 09:28 10/31/16 08:00 10/31/16 09:28 10/31/16 08:00 - Medications Medications: Current Medications Acetaminophen (Tylenol 325mg Tab) 650 mg PO Q6 PRN PRN Reason: Pain, moderate (4-7) Last Admin: 10/26/16 23:28 Dose: 650 mg Amlodipine Besylate (Norvasc) 10 mg PO HS [facility] Last Admin: 10/30/16 21:37 Dose: 10 mg Aspirin (Ecotrin) 81 mg PO DAILY [facility] Last Admin: 10/30/16 09:31 Dose: 81 mg Enoxaparin Sodium (Lovenox) 30 mg SC DAILY [facility] PRN Reason: Protocol Last Admin: 10/30/16 09:29 Dose: 30 mg Famotidine (Pepcid) 20 mg PO BID [facility] Last Admin: 10/30/16 17:45 Dose: 20 mg Glipizide (Glucotrol Xl) 5 mg PO BRK [facility] Last Admin: 10/31/16 09:28 Dose: 5 mg Hydrochlorothiazide (Microzide) 12.5 mg PO DAILY [facility] Last Admin: 10/30/16 09:33 Dose: 12.5 mg Lidocaine (Lidoderm) 1 ea TD DAILY [facility] Last Admin: 10/30/16 09:32 Dose: 1 ea Losartan Potassium (Cozaar) 100 mg PO DAILY [facility] Last Admin: 10/31/16 09:28 Dose: 100 mg Memantine (Namenda) 10 mg PO BID [facility] Last Admin: 10/30/16 17:44 Dose: 10 mg Metoprolol Succinate (Toprol Xl) 25 mg PO DAILY [facility] Last Admin: 10/30/16 09:33 Dose: 25 mg Sitagliptin Phosphate (Januvia) 50 mg PO DAILY [facility] Last Admin: 10/31/16 09:27 Dose: 50 mg - Head Exam Head Exam: NORMAL INSPECTION - Eye Exam Eye Exam: Normal appearance - ENT Exam ENT Exam: Mucous Membranes Moist - Respiratory Exam Respiratory Exam: Clear to Ausculation Bilateral - Cardiovascular Exam Cardiovascular Exam: REGULAR RHYTHM - GI/Abdominal Exam GI & Abdominal Exam: Normal Bowel Sounds - Neurological Exam Neurological Exam: Awake, CN II-XII Intact Assessment and Plan (1) Dehydration Status: Acute (2) Syncope Status: Acute (3) DMII (diabetes mellitus, type 2) Status: Chronic (4) Dementia Status: Chronic (5) HTN (hypertension) Status: Chronic - Assessment and Plan (Free Text) Plan: cont meds cont tx cont PT subacute rehab
[2016-10-31] MEDS: Metoprolol Succinate 25 mg XL Tab PO SCH (09:31)
--- NOTE | 2016-10-31 09:38 | CP.PCM.PN ---
<Walker Brown - Last Filed: 10/31/16 09:42> Subjective - Date & Time of Evaluation Date of Evaluation: 10/31/16 Time of Evaluation: 08:00 - Subjective Subjective: pt seen and examined at bedside. No acute events overnight. Sitting up in bed, NAD. Tolerating PO intake without difficulty. OOB/ambulating with assistance and tolerating PT w/o difficulty. No new complaints. Denies fever/chills, headaches, changes in vision, CP/SOB/CASTILLO/palpitations, N/V/D/C, urinary symptoms. Objective - Vital Signs/Intake and Output Vital Signs (last 24 hours): Temp Pulse Resp BP Pulse Ox 98.3 F 68 20 111/55 L 90 L 10/31/16 08:00 10/31/16 09:31 10/31/16 08:00 10/31/16 09:31 10/31/16 08:00 - Medications Medications: Current Medications Acetaminophen (Tylenol 325mg Tab) 650 mg PO Q6 PRN PRN Reason: Pain, moderate (4-7) Last Admin: 10/26/16 23:28 Dose: 650 mg Amlodipine Besylate (Norvasc) 10 mg PO HS [facility] Last Admin: 10/30/16 21:37 Dose: 10 mg Aspirin (Ecotrin) 81 mg PO DAILY [facility] Last Admin: 10/31/16 09:31 Dose: 81 mg Enoxaparin Sodium (Lovenox) 30 mg SC DAILY [facility] PRN Reason: Protocol Last Admin: 10/31/16 09:29 Dose: 30 mg Famotidine (Pepcid) 20 mg PO BID [facility] Last Admin: 10/31/16 09:29 Dose: 20 mg Glipizide (Glucotrol Xl) 5 mg PO BRK [facility] Last Admin: 10/31/16 09:28 Dose: 5 mg Lidocaine (Lidoderm) 1 ea TD DAILY [facility] Last Admin: 10/31/16 09:30 Dose: 1 ea Losartan Potassium (Cozaar) 100 mg PO DAILY [facility] Last Admin: 10/31/16 09:28 Dose: 100 mg Memantine (Namenda) 10 mg PO BID [facility] Last Admin: 10/31/16 09:29 Dose: 10 mg Metoprolol Succinate (Toprol Xl) 25 mg PO DAILY [facility] Last Admin: 10/31/16 09:31 Dose: 25 mg Sitagliptin Phosphate (Januvia) 50 mg PO DAILY [facility] Last Admin: 10/31/16 09:27 Dose: 50 mg - Constitutional Appears: Well, Non-toxic, No Acute Distress - Head Exam Head Exam: ATRAUMATIC, NORMOCEPHALIC - Eye Exam Eye Exam: EOMI Pupil Exam: PERRL - ENT Exam ENT Exam: Mucous Membranes Moist - Respiratory Exam Respiratory Exam: Clear to Ausculation Bilateral, NORMAL BREATHING PATTERN. absent: Rales, Rhonchi, Wheezes - Cardiovascular Exam Cardiovascular Exam: REGULAR RHYTHM, RRR, +S1, +S2. absent: JVD, Rubs - GI/Abdominal Exam GI & Abdominal Exam: Soft, Normal Bowel Sounds. absent: Guarding, Rigid, Tenderness - Extremities Exam Extremities Exam: Normal Inspection. absent: Calf Tenderness, Joint Swelling, Tenderness - Back Exam Back Exam: absent: CVA tenderness (L), CVA tenderness (R) - Neurological Exam Neurological Exam: Alert, Awake, Oriented x3 Assessment and Plan - Assessment and Plan (Free Text) Assessment: 89 y/o female with a PMHx of DMII, HTN, and dementia admitted for investigation of syncopal episode. Plan: 1) Dehydration -PO fluid intake 2) Syncope -pt currently undergoing PT, awaiting transfer to Subacute 3) Diabetes Mellitus Type II -c/w home meds 4) Dementia -c/w with home meds 5) Hypertension -c/w home meds <Neo Rosario - Last Filed: 10/31/16 23:14> Objective - Vital Signs/Intake and Output Vital Signs (last 24 hours): Temp Pulse Resp BP Pulse Ox 98.3 F 76 20 122/68 94 L 10/31/16 20:06 10/31/16 22:10 10/31/16 20:06 10/31/16 22:10 10/31/16 20:06 Intake and Output: 10/31/16 11/01/16 18:59 06:59 Intake Total 650 Balance 650 - Medications Medications: Current Medications Acetaminophen (Tylenol 325mg Tab) 650 mg PO Q6 PRN PRN Reason: Pain, moderate (4-7) Last Admin: 10/26/16 23:28 Dose: 650 mg Amlodipine Besylate (Norvasc) 10 mg PO HS [facility] Last Admin: 10/31/16 22:10 Dose: 10 mg Aspirin (Ecotrin) 81 mg PO DAILY [facility] Last Admin: 10/31/16 09:31 Dose: 81 mg Enoxaparin Sodium (Lovenox) 30 mg SC DAILY [facility] PRN Reason: Protocol Last Admin: 10/31/16 09:29 Dose: 30 mg Famotidine (Pepcid) 20 mg PO BID [facility] Last Admin: 10/31/16 17:23 Dose: 20 mg Glipizide (Glucotrol Xl) 5 mg PO BRK [facility] Last Admin: 10/31/16 09:28 Dose: 5 mg Lidocaine (Lidoderm) 1 ea TD DAILY [facility] Last Admin: 10/31/16 09:30 Dose: 1 ea Losartan Potassium (Cozaar) 100 mg PO DAILY [facility] Last Admin: 10/31/16 09:28 Dose: 100 mg Memantine (Namenda) 10 mg PO BID [facility] Last Admin: 10/31/16 17:23 Dose: 10 mg Metoprolol Succinate (Toprol Xl) 25 mg PO DAILY [facility] Last Admin: 10/31/16 09:31 Dose: 25 mg Sitagliptin Phosphate (Januvia) 50 mg PO DAILY [facility] Last Admin: 10/31/16 09:27 Dose: 50 mg Assessment and Plan (1) Dehydration Status: Acute (2) Syncope Status: Acute (3) DMII (diabetes mellitus, type 2) Status: Chronic (4) Dementia Status: Chronic (5) HTN (hypertension) Status: Chronic - Assessment and Plan (Free Text) Plan: I was present during evaluation and discussed with Dr Brown re plans of care and treatment. Neo Rosario M.D.
[2016-11-01 00:34] VITALS: RESP 18
[2016-11-01] MEDS: Enoxaparin 30 mg Syringe SC SCH (09:12)
[2016-11-01] MEDS: Metoprolol Succinate 25 mg XL Tab PO SCH (09:12)
[2016-11-01] MEDS: Lidocaine 5% Patch TD SCH (09:13)
[2016-11-01] MEDS: GlipiZIDE 5 mg SR Tab PO SCH (09:14)
[2016-11-01 12:27] VITALS: BP 113/66; PULSE 65; TEMP 98; O2SAT 100
--- NOTE | 2016-11-01 13:25 | CP.PCM.DIS ---
Provider - Provider Date of Admission: 10/24/16 16:25 Attending physician: Neo Rosario MD Time Spent in preparation of Discharge (in minutes): 35 Diagnosis - Discharge Diagnosis (1) Dehydration Status: Acute Priority: Medium Hospital Course - Lab Results Lab Results: Most Recent Lab Values WBC 12.8 K/uL (4.8-10.8) H 10/24/16 12:40 RBC 4.62 Mil/uL (3.80-5.20) 10/24/16 12:40 Hgb 12.4 g/dL (12.0-16.0) 10/24/16 12:40 Hct 38.8 % (34.0-47.0) 10/24/16 12:40 MCV 84.2 fl (81.0-99.0) 10/24/16 12:40 MCH 26.9 pg (27.0-31.0) L 10/24/16 12:40 MCHC 32.0 g/dL (33.0-37.0) L 10/24/16 12:40 RDW 14.1 % (11.5-14.5) 10/24/16 12:40 Plt Count 217 K/uL (130-400) 10/24/16 12:40 MPV 9.8 fl (7.2-11.7) 10/24/16 12:40 Neut % (Auto) 75.1 % (50.0-75.0) H 10/24/16 12:40 Lymph % (Auto) 10.8 % (20.0-40.0) L 10/24/16 12:40 [place] % (Auto) 8.6 % (0.0-10.0) 10/24/16 12:40 Eos % (Auto) 4.7 % (0.0-4.0) H 10/24/16 12:40 Baso % (Auto) 0.8 % (0.0-2.0) 10/24/16 12:40 Neut # 9.6 K/uL (1.8-7.0) H 10/24/16 12:40 Lymph # 1.4 K/uL (1.0-4.3) 10/24/16 12:40 [place] # 1.1 K/uL (0.0-0.8) H 10/24/16 12:40 Eos # 0.6 K/uL (0.0-0.7) 10/24/16 12:40 Baso # 0.1 K/uL (0.0-0.2) 10/24/16 12:40 pO2 31 mm/Hg (30-55) 10/24/16 18:45 VBG pH 7.39 (7.32-7.43) 10/24/16 18:45 VBG pCO2 38 mmHg (40-60) L 10/24/16 18:45 VBG HCO3 22.6 mmol/L 10/24/16 18:45 VBG Total CO2 24.2 mmol/L (22-28) 10/24/16 18:45 VBG O2 Sat (Calc) 65.0 % (40-65) 10/24/16 18:45 VBG Base Excess -1.7 mmol/L (0.0-2.0) L 10/24/16 18:45 VBG Potassium 4.2 mmol/L (3.6-5.2) 10/24/16 18:45 Sodium 141.0 mmol/L (132-148) 10/24/16 18:45 Chloride 111.0 mmol/L (98-107) H 10/24/16 18:45 Glucose 162 mg/dL (65-105) H 10/24/16 18:45 Lactate 1.9 mmol/L (0.7-2.1) 10/24/16 18:45 FiO2 21.0 % 10/24/16 18:45 Sodium 142 mmol/l (132-148) 10/24/16 12:40 Potassium 4.4 MMOL/L (3.6-5.0) 10/24/16 12:40 Chloride 109 mmol/L (98-107) H 10/24/16 12:40 Carbon Dioxide 21 mmol/L (22-30) L 10/24/16 12:40 Anion Gap 16 (10-20) 10/24/16 12:40 BUN 31 mg/dl (7-17) H 10/24/16 12:40 Creatinine 1.6 mg/dL (0.7-1.2) H 10/24/16 12:40 Est GFR ( Amer) 37 10/24/16 12:40 Est GFR (Non-Af Amer) 30 10/24/16 12:40 POC Glucose (mg/dL) 229 mg/dL (65-110) H 11/01/16 11:22 Random Glucose 226 mg/dL (65-105) H 10/24/16 12:40 Calcium 9.8 mg/dL (8.4-10.2) 10/24/16 12:40 Total Bilirubin 1.9 mg/dl (0.2-1.3) H 10/24/16 12:40 AST 28 U/L (14-36) 10/24/16 12:40 ALT 30 U/L (9-52) 10/24/16 12:40 Alkaline Phosphatase 108 U/L (38-126) 10/24/16 12:40 Total Protein 8.0 G/DL (6.3-8.2) 10/24/16 12:40 Albumin 4.6 g/dL (3.5-5.0) 10/24/16 12:40 Globulin 3.4 gm/dL (2.2-3.9) 10/24/16 12:40 Albumin/Globulin Ratio 1.3 (1.0-2.1) 10/24/16 12:40 Venous Blood Potassium 4.2 mmol/L (3.6-5.2) 10/24/16 18:45 Urine Color Yellow (YELLOW) 10/24/16 16:54 Urine Clarity Clear (Clear) 10/24/16 16:54 Urine pH 5.0 (5.0-8.0) 10/24/16 16:54 Ur Specific [place] 1.014 (1.003-1.030) 10/24/16 16:54 Urine Protein Negative mg/dL (NEGATIVE) 10/24/16 16:54 Urine Glucose (UA) Neg mg/dL (Normal) 10/24/16 16:54 Urine Ketones Negative mg/dL (NEGATIVE) 10/24/16 16:54 Urine Blood Negative (NEGATIVE) 10/24/16 16:54 Urine Nitrate Negative (NEGATIVE) 10/24/16 16:54 Urine Bilirubin Negative (NEGATIVE) 10/24/16 16:54 Urine Urobilinogen 0.2-1.0 mg/dL (0.2-1.0) 10/24/16 16:54 Ur Leukocyte Esterase Small Matt/uL (Negative) 10/24/16 16:54 Urine RBC (Auto) 2 /hpf (0-3) 10/24/16 16:54 Urine Microscopic WBC 12 /hpf (0-5) H 10/24/16 16:54 Ur Squamous Epith Cells < 1 /hpf (0-5) 10/24/16 16:54 - Hospital Course Hospital Course: 89 y/o female with a PMHx of DMII, HTN, and dementia admitted for investigation of syncopal episode after being found unconscious by her homemaker. During the course of her stay, various modalities were utilized in investigation of the possible etiology of her symptoms. EKG showed sinus rythym with a 1st degree AV block, Head CT was negative for acute changes, CXR/Pelvic negative as well. Cartoid u/s was negative for any hemodynamically significant stenosis. Neuro saw the pt and recommended stricter BS control. Cardiology also saw the pt and did not modify treatment. After an uneventful stay, the patient was discharged in stable condition to [place]. Discharge Exam - Head Exam Head Exam: ATRAUMATIC, NORMOCEPHALIC Discharge Plan - Follow Up Plan Condition: FAIR Disposition: HOME/ ROUTINE
== END 2016-11-01 13:14 | DRG 641 ==
LOC: H.ER 12:07 → INTOOBSV 16:25 → OBSVTOIN 16:25 → H.ERHOLD 16:25 → H.TEL 18:19
PROVIDERS: ADMIT Family Medicine; ATTEND Family Medicine
PROC: 3E0234Z Introduction of Serum, Toxoid and Vaccine into Muscle, Percutaneous Approach (ICD-10-PCS; principal; 2016-10-25)
DX: E86.0 Dehydration (principal); E11.22 Type 2 diabetes mellitus with diabetic chronic kidney disease; F03.90 Unspecified dementia, unspecified severity, without behavioral disturbance, psychotic disturbance, mood disturbance, and anxiety; N39.0 Urinary tract infection, site not specified; E11.42 Type 2 diabetes mellitus with diabetic polyneuropathy; N18.3 Chronic kidney disease, stage 3 (moderate); I12.9 Hypertensive chronic kidney disease with stage 1 through stage 4 chronic kidney disease, or unspecified chronic kidney disease; I44.0 Atrioventricular block, first degree; R55 Syncope and collapse; E78.5 Hyperlipidemia, unspecified; R26.81 Unsteadiness on feet; E78.00 Pure hypercholesterolemia, unspecified; Z23 Encounter for immunization; Z79.82 Long term (current) use of aspirin; Z91.81 History of falling; Z86.73 Personal history of transient ischemic attack (TIA), and cerebral infarction without residual deficits; Z90.710 Acquired absence of both cervix and uterus